=== PATIENT | male | born 1940 | race Caucasian/White ===

== ENCOUNTER 2018-10-24 13:15 | Emergency (ER) | payer MEDICARE, OTHER ==
[~2018-10-24] VITALS: Ht 170.2 cm; Wt 72.6 kg
[2018-10-24 13:24] VITALS: BP 153/76
[2018-10-24] MEDS ORDERED: GLYBURIDE 2.52.5 M1 PO (13:31)
[2018-10-24] MEDS ORDERED: LIPITOR80 MG PO (13:31)
[2018-10-24] MEDS ORDERED: CARVEDILOL3.125 MG PO (13:31)
[2018-10-24] MEDS ORDERED: OMEPRAZOLE20 M2 PO (13:31)
[2018-10-24] MEDS ORDERED: FLOMAX0.4 MG PO (13:31)
[2018-10-24] MEDS ORDERED: WELCHOL 625 MG625 M1 PO (13:32)
[2018-10-24] MEDS ORDERED: ASPIR 8181 MG PO (13:32)
== END 2018-10-24 14:06 | disposition home or self-care (01) ==
LOC: M.ERS 13:15
DX: R33.9 Retention of urine, unspecified (principal)